=== PATIENT | female | born 1960 | race Caucasian/White ===

== ENCOUNTER 2017-11-27 08:45 | Outpatient (CLI) | payer BC ==
--- NOTE | 2017-11-27 15:30 | MMO ---
SCREENING MAMMOGRAPHY: Date: 11-27-17 Comparison: 09-17-14 History: Screening. FINDINGS: This study is interpreted with the assistance of computer aided detection. Scattered fibroglandular densities are present. Benign calcification again noted on the left. Stable intermammillary node present on the right. No dominant mass or architectural distortion. No concernin g microcalcifications are seen. Scattered benign appearing stable right sided microcalcifications are present. IMPRESSION: BIRADS 2 - benign findings. Recommend annual screening mammography. POS: [facility]
== END 2017-11-27 08:46 | disposition home or self-care (01) ==
LOC: SCSMAMMO 08:45
PROVIDERS: ATTEND Family Medicine
DX: Z12.31 Encounter for screening mammogram for malignant neoplasm of breast (principal)
CPT/HCPCS: 77067

== ENCOUNTER 2019-03-11 10:49 | Emergency (ER) | payer BC ==
[2019-03-11] MEDS ORDERED: Morphine 4 MG/ML VIAL ONE ×2 (11:22→12:00)
[2019-03-11] MEDS ORDERED: Ondansetron PF 4 MG/2 ML Vial ONE (11:22)
[2019-03-11 11:39] LABS: #Basophils 0.1 thou/uL (0.0-0.2); #Eosinphils 0.2 thou/uL (0.0-0.7); #Lymphocytes 1.8 thou/uL (1.20-3.40); #Monocytes 0.8 thou/uL (0.11-0.59); #Neutrophils 4.5 thou/uL (1.40-6.50); %Basophils 1.2 % (0.0-1.0); %Eosinophils 2.3 % (0.0-10.0); %Lymphocytes 24.9 % (21.0-51.0); %Monocytes 10.5 % (0.0-10.0); %Neutrophils 61.2 % (42.0-75.0); Hemoglobin 13.2 g/dL (12.0-16.0); Mean Corpuscular HGB CONC 33.1 g/dL (32.0-36.0); Mean Corpuscular Hemoglobin 29.6 pg (27.0-31.0); Mean Corpuscular Volume 89.2 fL (78.0-98.0); Mean Platelet Volume 10.1 fL (7.4-10.4); Platelet Count 210 thou/uL (130-400); RBC Distribution Width 11.8 % (11.5-14.5); Red Blood Cell (RBC) Count 4.48 mill/uL (4.20-5.40); White Blood Cell (WBC) Count 7.4 thou/uL (4.8-10.8)
[2019-03-11 11:48] LABS: ALT (SGPT) 16 U/L (8-55); AST (SGOT) 15 U/L (5-34); Albumin 3.7 g/dL (3.5-5.0); Alkaline Phosphatase 81 U/L (40-110); Anion Gap 15 mmol/L (10-20); BUN (Urea Nitrogen) 21 mg/dL (9.8-20.1); Bilirubin, Total 0.2 mg/dL (0.2-1.2); Calc. Creatinine Clearance 0 mL/min (70-130); Calcium 8.9 mg/dL (7.8-10.44); Carbon Dioxide 18 mmol/L (22-29); Chloride 112 mmol/L (98-107); Estimated GFR-MDRD 46; Globulin 2.9 g/dL (2.4-3.5); Glucose 93 mg/dL (70-105); Lipase 31 U/L (8-78); Potassium 3.7 mmol/L (3.5-5.1); Protein, Total 6.6 g/dL (6.0-8.3); Sodium 141 mmol/L (136-145)
--- NOTE | 2019-03-11 12:28 | CT ---
CT OF ABDOMEN AND PELVIS PERFORMED WITHOUT CONTRAST ENHANCEMENT: HISTORY: Right flank pain. FINDINGS: The lung bases are clear of infiltrates. Hypodensities within the liver are noted. They appear to all represents cysts. The largest of these is in the right lobe measuring 7.8 cm. The spleen and pancreas regions appear unremarkable. The ga llbladder has been removed. Right and left adrenal glands are normal. Right and left kidneys are normal in size. There are punc light lower pole nonobstructing left renal calculi. There is a larger calculus in the lower pole of t he right kidney which measures 8 mm in maximum size and there is right-sided hydronephrosis and hydro ureter that is related to what appear to be 2 or 3 distal right ureteral calculi, 2 of which measure in the 3-4 mm range and 1 measures in the 7 mm range. These are located just proximal to the uretero vesical junction. There is no significant paraaortic or mesenteric adenopathy. CT OF PELVIS PERFORMED WITHOUT CONTRAST: The appendix is retrocecal in location and normal in size. Sigmoid diverticulosis is noted. IMPRESSION: 1. Bilateral renal calculi. 2. Right-sided hydronephrosis and hydroureter which appears to be related to several distal right ur eteral calculi near the right ureterovesical junction. 3. Sigmoid diverticulosis. 4. Hepatic cysts. POS: [facility]
[2019-03-11] MEDS ORDERED: Ketorolac Tromethamine 30 MG/ML VIAL ONE (12:37)
[2019-03-11 13:02] LABS: Bilirubin Negative (Negative); Blood, Urine Moderate (Negative); Clarity Clear (Clear); Glucose, Urine (Dipstick) Negative (Negative); Leukocyte Negative (Negative); Nitrite Negative (Negative); Protein, Urine (Dipstick) Negative (Neg-Trace); Urobilinogen 0.2 mg/dL (Less than 2)
[2019-03-11 13:07] LABS: Bacteria/HPF 1+ HPF (None Seen); Epithelial Cast None Seen LPF (None Seen); Squamous Epithelial 0-3 HPF (0-3); WBC/HPF 0-3 HPF (0-3); Yeast-Budding 1+ HPF (None Seen)
== END 2019-03-11 13:57 | disposition home or self-care (01) ==
LOC: SCSER 10:49
DX: N13.2 Hydronephrosis with renal and ureteral calculous obstruction (principal); G43.909 Migraine, unspecified, not intractable, without status migrainosus
CPT/HCPCS: 74177; 80053; 81003; 81015; 83690; 85025; 96361; 96374; 96375; 96376; J1885; J2270; J2405